=== PATIENT | male | born 1990 | race Two or more races ===

== ENCOUNTER 2018-04-28 15:22 | Emergency (ER) | payer SELFPAY ==
[~2018-04-28] VITALS: Ht 182.9 cm; Wt 86.2 kg
[2018-04-28 15:22] VITALS: BP 131/70
== END 2018-04-28 16:20 | disposition home or self-care (01) ==
LOC: ER 15:22
DX: J06.9 Acute upper respiratory infection, unspecified (principal); F17.210 Nicotine dependence, cigarettes, uncomplicated
CPT/HCPCS: 71045; 99283; A4606; Z7610

== ENCOUNTER 2018-07-21 23:55 | Emergency (ER) | payer OTHER ==
[~2018-07-21] VITALS: Ht 172.7 cm; Wt 95.3 kg
[2018-07-22 00:18] VITALS: BP 124/78
== END 2018-07-22 00:48 | disposition home or self-care (01) ==
LOC: ER 07-22 00:01
DX: J06.9 Acute upper respiratory infection, unspecified (principal); H66.92 Otitis media, unspecified, left ear; F17.200 Nicotine dependence, unspecified, uncomplicated

== ENCOUNTER 2018-07-24 21:22 | Emergency (ER) | payer OTHER ==
--- NOTE | 2018-07-24 21:25 | NUR ---
PT NAMED CALLED IN TRAIGE AREA, NO RESPONSE.
--- NOTE | 2018-07-24 21:30 | NUR ---
PT NAME CALLED 2ND TIME IN TRIAGE AREA, NO RESPONSE.
--- NOTE | 2018-07-24 21:46 | NUR ---
PT CALLED 3 TIMES ON WAITING ROOM STILL NO ANSWER.
== END 2018-07-24 21:49 | disposition left against medical advice (07) ==
LOC: ER 21:27
DX: Z53.21 Procedure and treatment not carried out due to patient leaving prior to being seen by health care provider (principal)